=== PATIENT | female | born 1965 | race Caucasian/White ===

== ENCOUNTER 2017-09-28 23:06 | Observation (INO) | payer OTHER ==
[~2017-09-28] VITALS: Ht 170.2 cm; Wt 83.9 kg
[~2017-09-28 23:06] MED LIST: ALBUTEROL2.5 MG/3 M IH; COMBIVENT RESPIM4 GM IH; DULERA 200 MCG/13 GM IH; MOTRIN800 MG PO; PREDNISONE10 MG PO; SINGULAIR10 MG PO; XOLAIR150 MG SC
[2017-09-28 23:34] LABS: HEMATOCRIT 42.1 % (36.0-46.0); HEMOGLOBIN 14.1 G/DL (11.9-15.5); MCH 30.1 PG (29.0-34.0); MCHC 33.5 G/DL (30.0-36.0); PLATELET COUNT 262 K/uL (156-360); RBC DIS.WIDTH-CV 12.7 % (11.8-14.6); RBC DIS.WIDTH-SD 41.7 % (39-53); RED BLOOD COUNT 4.68 M/uL (3.80-5.20); WHITE BLOOD COUNT 10.8 K/uL (4.1-10.2)
[2017-09-28 23:48] LABS: CHLORIDE 105 mEq/L (99-109); POTASSIUM 3.4 mEq/L (3.7-5.4); SODIUM 140 mEq/L (136-147)
[2017-09-28 23:50] LABS: GLUCOSE 142 mg/dL (70-99)
[2017-09-28 23:54] LABS: CREATININE 0.7 mg/dL (0.6-1.3); GFR ESTIMATE (CALCULATED) > 59 mL/min/
[2017-09-28 23:55] LABS: UREA NITROGEN (BUN) 24 mg/dL (9-23)
[2017-09-29 00:34] LABS: TROP-I INTERPRETATION NEGATIVE; TROPONIN-I < 0.01 ng/mL (0.0-0.30)
[2017-09-29] MEDS ORDERED: QVAR 80 MCG IN7.3 GM IH (03:33)
[2017-09-29] MEDS ORDERED: MICRO-K10 ME2 PO (03:35)
[2017-09-29] MEDS ORDERED: CEFDINIR300 MG PO (07:26)
[2017-09-29] MEDS ORDERED: FLONASE16 G1 BOTH NARES (07:27)
[2017-09-29] MEDS ORDERED: COMBIVENT RESPIM4 GM IH (12:34)
[2017-09-29] MEDS ORDERED: AZITHROMYCIN250 MG PO (12:36)
[2017-09-29] MEDS ORDERED: PREDNISONE10 MG PO (12:36)
[2017-09-29 13:12] VITALS: BP 123/78
== END 2017-09-29 14:04 | disposition home or self-care (01) ==
LOC: EME 23:06 → EDOF 09-29 03:18 → ENRESERV 09-29 03:21 → CANRESERV 09-29 11:55 → EDOF 09-29 14:04
DX: J45.901 Unspecified asthma with (acute) exacerbation (principal); Z79.52 Long term (current) use of systemic steroids; J32.9 Chronic sinusitis, unspecified; Z88.2 Allergy status to sulfonamides; Z82.5 Family history of asthma and other chronic lower respiratory diseases
CPT/HCPCS: 71046; 80048; 84484; 85027; 93005; 94640; 94644; 99202; 99281; 99285; G0378; J1100; J1650; J2930; J3475; J7030; S0028